=== PATIENT | female | born 1995 ===

== ENCOUNTER 2018-09-27 19:05 | Emergency (ER) | payer MEDICAID, OTHER ==
[2018-09-27 19:05] VITALS: BMI 20.7
[2018-09-27 19:30] VITALS: RESP 20
[2018-09-27 20:01] LABS: BASO % 0.5 % (0.0-2.0); EOS # 0.1 K/uL (0.0-0.7); EOS % 1.5 % (0.0-4.0); HEMOGLOBIN 12.2 g/dL (11.0-16.0); LYMPH # 3.2 K/uL (1.0-4.3); LYMPH % 43.2 % (20.0-40.0); MEAN CELL VOLUME 80.4 fL (81.0-99.0); MEAN CORPUSCULAR HEMOGLOBIN 25.4 pg (27.0-31.0); MEAN CORPUSCULAR HGB CONC 31.6 g/dL (33.0-37.0); MEAN PLATELET VOLUME 9.2 fL (7.2-11.7); MONO # 0.6 K/uL (0.0-0.8); MONO % 8.4 % (0.0-10.0); NEUT # 3.4 K/uL (1.8-7.0); NEUT % 46.4 % (50.0-75.0); NRBC % 0.1 % (0.0-2.0); RBC 4.81 Mil/uL (3.80-5.20); WHITE BLOOD COUNT 7.3 K/uL (4.8-10.8)
--- NOTE | 2018-09-27 20:16 | C.PDOC ---
History Of Present Illness 23yo female, with history of hemorrhoids, anemia, comes to ER reporting abdominal pain and bloody stool today. She reports the pain is epigastric and associated with nausea; patient denies any vomiting or diarrhea. She states painless bowel movement with blood in the bowl. She denies any persistent bleeding. Patient denies any recent alcohol use, and denies taking medications like Advil or Motrin. No chest pain or shortness of breath. No additional medical complaints. PMD: None Time Seen by Provider: 09/27/18 19:48 Chief Complaint (Nursing): Abdominal Pain History Per: Patient History/Exam Limitations: no limitations Onset/Duration Of Symptoms: Hrs Current Symptoms Are (Timing): Still Present Location Of Pain/Discomfort: Epigastric Quality Of Discomfort: "Pain" Associated Symptoms: Nausea. denies: Vomiting, Diarrhea, Urinary Symptoms Additional History Per: Patient Past Medical History Reviewed: Historical Data, Nursing Documentation, Vital Signs Vital Signs: Last Vital Signs Temp 98.4 F 09/27/18 19:25 Pulse 69 09/27/18 19:25 Resp 20 09/27/18 19:25 BP 116/75 09/27/18 19:25 Pulse Ox 99 09/27/18 19:25 - Medical History PMH: Anemia Denies: HIV, Chronic Kidney Disease Surgical History: Endoscopy (Colonoscopy) Family History: States: No Known Family Hx - Social History Hx Alcohol Use: No Hx Substance Use: No Review Of Systems Except As Marked, All Systems Reviewed And Found Negative. Cardiovascular: Negative for: Chest Pain Respiratory: Negative for: Shortness of Breath Physical Exam - Physical Exam Additional Physical Exam Comments: Constitutional: No acute distress. Head: Normocephalic. Atraumatic. Eyes: PERRL. ENT: Moist mucous membranes. Neck: Supple. Cardiovascular: Regular rate. Radial pulse 2+ bilaterally. Chest: No tenderness. Respiratory: Clear to auscultation bilaterally. GI: Soft. Nontender. Nondistended. Back: No CVA tenderness. Musculoskeletal: No tenderness or swelling of extremities. Skin: No rash. Neurologic: Alert, no focal deficit. ED Course And Treatment - Laboratory Results Result Diagrams: 09/27/18 19:54 09/27/18 19:54 O2 Sat by Pulse Oximetry: 99 (RA) Pulse Ox Interpretation: Normal Medical Decision Making Medical Decision [place] female with epigastric pain, blood in stool Plan: -- Labs -- Urinalysis -- Urine HCG Hb 10+. Vitals normal. Patient feels better. No further bleeding in ED. Discharged home, instructed to return to ED for worsening bleeding, symptoms of anemia, abdominal pain, or any other problem. Disposition - Disposition Disposition: HOME/ ROUTINE Disposition Time: 21:59 Condition: STABLE Instructions: Hemorrhoids (DC) Forms: Txt4 (Burkinan) - Clinical Impression Clinical Impression: Rectal bleeding - Scribe Statement The provider has reviewed the documentation as recorded by the Angy Dahl Provider Attestation: All medical record entries made by the Angy were at my direction and personally dictated by me. I have reviewed the chart and agree that the record accurately reflects my personal performance of the history, physical exam, medical decision making, and the department course for this patient. I have also personally directed, reviewed, and agree with the discharge instructions and disposition.
[2018-09-27 20:19] LABS: ALB/GLOB RATIO 1.5 (1.0-2.1); ALBUMIN 4.4 g/dL (3.5-5.0); ALT/SGPT 27 U/L (9-52); AST/SGOT 36 U/L (14-36); BLOOD UREA NITROGEN 18 mg/dL (7-17); CALCIUM 8.9 mg/dl (8.6-10.4); GFR NON-AFRICAN AMERICAN > 60
[2018-09-27 20:28] LABS: HCG,QUALITATIVE URINE NEGATIVE (NEGATIVE)
[2018-09-27 20:48] LABS: SQUAMOUS EPITHIAL 4 /hpf (0-5); URINE BACTERIA OCC (<OCC); URINE BILIRUBIN NEGATIVE (NEGATIVE); URINE BLOOD NEGATIVE (NEGATIVE); URINE CLARITY Hazy (Clear); URINE COLOR Yellow (YELLOW); URINE GLUCOSE (UA) NORMAL (Normal); URINE LEUKOCYTE ESTERASE TRACE Leu/uL (Negative); URINE PROTEIN NEGATIVE (NEGATIVE); URINE UROBILINOGEN NORMAL mg/dL (0.2-1.0)
[2018-09-27] MEDS ORDERED: Alum-Mag Hydrox-Simethicone Susp (30 mL) PO STA (20:48)
[2018-09-27] MEDS ORDERED: Simethicone 80 mg Chewtab PO STA (20:48)
[2018-09-27] MEDS ORDERED: Aluminum Hydroxide/Magnesium Hydroxide Susp (30 mL) ONE (21:09)
[2018-09-27 22:10] VITALS: BP 113/73; PULSE 62; TEMP 98.1
[2018-09-27 23:00] VITALS: O2SAT 99
== END 2018-09-27 22:09 | disposition home or self-care (01) ==
LOC: C.ER 19:05
DX: K62.5 Hemorrhage of anus and rectum (principal)